=== PATIENT | male | born 1950 | race Caucasian/White ===

== ENCOUNTER 2024-05-24 06:14 | Inpatient (IN) ==
--- NOTE | 2024-05-17 10:49 | PAT Medication Instructions ---
Medication Instructions Date of Service May 17, 2024 Home Medications amlodipine 10 mg tablet 10 mg PO QAM hydrocodone 5 mg-acetaminophen 325 mg tablet 1 tab PO BID losartan 100 mg tablet 100 mg PO QAM gabapentin 100 mg capsule 100 mg PO QAM lidocaine 4 % topical cream 1 applic topical BID tamsulosin 0.4 mg capsule 0.4 mg PO DAILY clindamycin HCl 300 mg capsule 300 mg PO TID glipizide 5 mg tablet, extended release 24 hr 5 mg PO DAILY STOP taking 24 hours before surgery lidocaine 4 % topical cream 1 applic topical BID DO NOT take the morning of surgery losartan 100 mg tablet 100 mg PO QAM glipizide 5 mg tablet, extended release 24 hr 5 mg PO DAILY Take morning of surgery With a small sip of water, OTHERWISE NOTHING TO EAT OR DRINK AFTER MIDNIGHT: amlodipine 10 mg tablet 10 mg PO QAM hydrocodone 5 mg-acetaminophen 325 mg tablet 1 tab PO BID gabapentin 100 mg capsule 100 mg PO QAM tamsulosin 0.4 mg capsule 0.4 mg PO DAILY clindamycin HCl 300 mg capsule 300 mg PO TID Take evening before surgery hydrocodone 5 mg-acetaminophen 325 mg tablet 1 tab PO BID clindamycin HCl 300 mg capsule 300 mg PO TID Other Notes If you have any questions please call us at [phone] or [phone] or or [phone]
--- NOTE | 2024-05-21 08:23 | Anesthesiology Consultation ---
Date of Service May 21, 2024 Assessment & Plan (1) Encounter for pre-operative examination: - check BSG am DOS. To anesthesiologist discretion if BMP needs repeated DOS given mild hyperkalemia. - ER 05/13/24 [facility]: "...Unclear etiology for patient's leukocytosis at this time...1000 mg of Tylenol, but he declined...blood pressure remained elevated while in the emergency department...denies any chest pain or shortness of breath. His main complaint is abdominal pain. CT imaging grossly unremarkable. Unclear etiology for his lower abdominal pain. May be secondary to some urinary retention, but on bladder scan, the patient does not have any significant u rinary retention after voiding...No new prescriptions...Recommended close follow-up with his primary care provider..." Patient reports improvement since ER visit, states he was started on clindamycin earlier this week for UTI-he is unsure who prescribed this. Pharmacy note 05/18/24 states that patient denied urinary symptoms so they did not plan to prescribe antibiotic after follow-up on urine culture. Chapin with surgeon's office made aware of above and poor history on patient stating he was prescribed clindamycin which was initially entered into chart 04/09/24 to chart review. - PAT testing is to be faxed to PCP Dr. Rico for continuity of care. Chart Review Chart Review: Acceptable Risk for Surgery and Patient seen in Pre Admission Testing Teaching & Discussion Pre-Anesthesia Teaching/Discussion Notes: Instructed NPO after midnight before surgery, except medications with 15 cc of water. Medication instructions provided according to the PAT guidelines. History Surgery Operation Date: 05/24/24 08:00 Proposed Procedures p Left Transcarotid Artery Revascularization - Chencho Blanco MD Height/Weight Height: 5 ft 6 in Weight: 87.5 kg Allergies Allergy/AdvReac Type Severity Reaction Status Date / Time No Known Allergies Allergy Verified 05/17/24 09:09 Medications Home Medications Medication Instructions Recorded Confirmed Last Taken amlodipine 10 mg tablet 10 mg PO QAM 12/12/21 05/17/24 12/31/21 04:00 hydrocodone 5 mg-acetaminophen 325 1 tab PO BID 12/12/21 05/17/24 12/31/21 04:00 mg tablet losartan 100 mg tablet 100 mg PO QAM 12/12/21 05/17/24 12/31/21 04:00 gabapentin 100 mg capsule 100 mg PO QAM 02/02/24 05/17/24 Unknown lidocaine 4 % topical cream 1 applic topical BID 02/02/24 05/17/24 Unknown tamsulosin 0.4 mg capsule 0.4 mg PO DAILY 02/02/24 05/17/24 Unknown clindamycin HCl 300 mg capsule 300 mg PO TID 04/09/24 05/17/24 Unknown glipizide 5 mg tablet, extended 5 mg PO DAILY 04/09/24 05/17/24 Unknown release 24 hr Past Medical History Medical History CAD (coronary artery disease) entered into EMR 02/02/24 by pain management provider without additional details; pt does not follow w/ cardio CKD (chronic kidney disease) COPD (chronic obstructive pulmonary disease) pt unaware Diabetes mellitus denies, noncompliant w/ glipizide HTN (hypertension) controlled, stable per pt Hx-TIA (transient ischemic attack) 04/2024- denies residual; states reason for upcoming procedure Leukocytosis Lumbar spondylosis Lumbar stenosis with neurogenic claudication severe at L4-5 Poor historian Urinary retention UTI (urinary tract infection) to start clindamycin Patient denies h/o seizures, heart failure, blood clots/DVTs or blood transfusions. Exercise / Class Metabolic Activity II 4-5 Yardwork/Stairs/Walk up hill (denies chest discomfort or shortness of breath with one flight of stairs) Past Surgical History Surgical History History of cardiac catheterization possible [place]--01/31/2014-denies stents History of carpal tunnel release Right 05/18/2015 History of right cataract surgery History of shoulder surgery right and left Hx of left cataract extraction Hx of tooth extraction Past Anesthesia History No Hx of Anesthesia Complications and No Family Hx of Anesthesia Complications History of PONV No Hx of PONV and No Hx of Motion Sickness Social History Smoking Status: Current every day smoker tobacco type: cigarettes Smoking cigarettes per day: 1.5PPD-advised Do You Dip or Chew Tobacco: No Hx Alcohol Use: Yes Alcohol type: beer alcohol intake frequency: a few times a week Hx Substance Use: No substance use type: does not use Review of Systems Patient denies chest pain, shortness of breath, dyspnea on exertion, snoring, witnessed apneas, reflux, fever, chills, cough, wheezing, or palpitations. Physical Exam Vital Signs Vitals BP 152/80 P 65 TEMP 97.8 SP02 94% on RA RESP 18 Physical Patient resting comfortably in chair in no acute distress, alert and oriented, responding appropriately throughout visit Full cervical extension range of motion without pain TMD 3.5 finger breadths Mallampati Score 3 Dentition: full upper denture Lungs: normal respiratory effort. Good air movement, clear throughout to auscultation, no adventitious breath sounds Cardiac: regular rate and rhythm, no murmurs noted Lab Results Anesthesia Preop Results Results Anesthesia Widget: WBC 7.10 K/ul (4.8-10.8) 05/21/24 Hgb 12.6 g/dl (14.0-18.0) L 05/21/24 Hct 38.0 % (42.0-52.0) L 05/21/24 Plt 212 K/uL (130-400) 05/21/24 Na 134 mmol/L (136-145) L 05/21/24 K 5.2 mmol/L (3.5-5.1) H 05/21/24 Cl 101 mmol/L (98-107) 05/21/24 CO2 28 mmol/L (21-32) 05/21/24 BUN 25 mg/dl (6-23) H 05/21/24 Creat 1.40 mg/dl (0.6-1.4) 05/21/24 Glucose Level 201 mg/dl (70-99(Fasting)) H 05/21/24 PT 11.1 Seconds (9.0-12.0) 05/21/24 PTT 26 Seconds (21-31) 05/21/24 INR 1.0 (0.9-1.1) 05/21/24 HA1c 8.6 % (4.5-5.6) H 05/21/24 Urine Color Yellow 05/13/24 Urine Appearance Clear (Clear) 05/13/24 Urine pH 6.0 (4.5-7.5) 05/13/24 Urine Specific [place] 1.043 (1.000-1.030) H 05/13/24 Urine Protein 3+ (Negative) H 05/13/24 Urine Glucose (UA) Negative (Negative) 05/13/24 Urine Ketones Negative (Negative) 05/13/24 Urine Blood Trace (Negative) H 05/13/24 Urine Nitrite Negative (Negative) 05/13/24 Urine Bilirubin Negative (Negative) 05/13/24 Urine Urobilinogen Negative (Negative) 05/13/24 Urine Leukocyte Esterase Negative (Negative) 05/13/24 Urine WBC (Auto) 11-20 /hpf (0-5) H 05/13/24 Urine RBC (Auto) 0-2 /hpf (0-2) 05/13/24 Urine Hyaline Casts (Auto) 0-2 /lpf (0-2) 05/13/24 Urine Epithelial Cells (Auto) 0-2 /hpf (0-2) 05/13/24 Urine Bacteria (Auto) None Seen (None Seen) 05/13/24 Blood Type AB Positive 05/21/24 Antibody Screen NEGATIVE 05/21/24 Testing Laboratory Results Surgeon's office made aware of elevated A1c, acceptable to proceed from anesthesia standpoint given indication for surgery. Electrocardiogram Date: 05/21/24 NSR, rate 68 bpm Right superior axis deviation Poor R wave progression, consider anterior NJ vs lead placement vs LVH Chest X-Ray Date: 05/21/24 No acute cardiopulmonary findings. Echocardiogram Date: 05/10/24 EF 65% Normal LV regional wall motion abnormalities Asymmetric septal hypertrophy 1.4 cm Grade I diastolic dysfunction No significant valvular abnormalities Other Testing Abdomen pelvis CT 05/13/24 1. No acute process within the abdomen or pelvis. 2. Extensive colonic diverticulosis. No evidence for acute diverticulitis. 3. Normal appendix. No bowel obstruction. 4. Left nephrolithiasis. No ureteral calculi. No hydronephrosis. Urine culture 05/13/24: E. coli Neck CTA 05/05/24 1. Advanced atherosclerotic plaque with no CT evidence of hemodynamically significant carotid artery stenosis. 2. There is less than 50% stenosis at the origin of the left internal carotid artery. 3. Apparent high-grade focal stenosis of the left vertebral artery at the level of C5 is likely secondary to spondylotic change. 4. Emphysema. 5. Paranasal sinus disease as above. Carotid doppler 04/15/24 1. Focal area of high-grade stenosis versus occlusion of the proximal cervical segment left ICA. Correlation with CTA of the neck recommended. 2. Normal antegrade vertebral flow bilaterally.
--- OUTSIDE RECORDS SUMMARY | 2024-05-24 06:22 | External Medical Summary | Continuity of Care Document ---
Author Name Unknown Organization [facility] [address] [place], [place] [id number] Care Team Providers Care Trout Farmer Name Role Phone Jh Rico Primary Care Physician [phone] Encounter [id number] Date(s): 05/21/24 - 05/21/24 [facility] [address] [facility] [address] [place], [place] [phone] Encounter Diagnosis Occlusion and stenosis of bilateral carotid arteries(Final) - Discharge Disposition: Home or Self Care Attending Physician: SAMMIE Arthur Lynn Referring Physician: SAMMIE Arthur Lynn Allergies, Adverse Reactions, Alerts No Known Allergies Medications acetaminophen-hydrocodone 325 mg-5 mg oral tablet TAKE 1 TABLET BY MOUTH 2 times a day as needed Start Date: 05/06/24 Status: Ordered amLODIPine 10 mg oral tablet TAKE 1 TABLET (10mg) BY MOUTH IN THE MORNING Start Date: 05/06/24 Status: Ordered aspirin 81 mg oral delayed release tablet Start: 05/10/24 3:07:00 PM EDT, 1 tab, PO, Daily, Disp# 90 tab, Refills: 3, [facility] [place] Start Date: 05/10/24 Status: Ordered atorvastatin 40 mg oral tablet Start: 05/10/24 3:08:00 PM EDT, 1 tab, PO, Daily, Disp# 90 tab, Refills: 3, [facility] [place] Start Date: 05/10/24 Status: Ordered losartan 100 mg oral tablet TAKE 1 TABLET (100mg) BY MOUTH IN THE MORNING Start Date: 05/06/24 Status: Ordered nitroglycerin 0.4 mg sublingual tablet Start: 05/06/24 8:56:00 AM EDT, 1 tab, SL, q5min, Disp# 25 tab, PRN: as needed for chest pain Start Date: 05/06/24 Status: Ordered Plavix 75 mg oral tablet Start: 05/10/24 3:07:00 PM EDT, 1 tab, PO, Daily, Disp# 90 tab, Refills: 3, Pharmacy: [facility] Start Date: 05/10/24 Status: Ordered Problem List No Known Problems Results Laboratory List Name Date Platelet Function (P2Y12 Receptor) (PLT FUNCTION P2Y12) 05/21/24 Most recent to oldest [Reference Range]: 1 P2Y12 Platelet Function [194-418 PRU] 21 7 PRU 1 (05/21/24 12:13 PM) 1Result Comment: PRU reference range is 194-418 (healthy adults, no drug treatment). Post Drug Results: Lower PRU levels are expected following treatment with antiplatelet drugs. Post-treatment values are usually below the stated reference range above. The post-drug PRU values reported in the [employer] P2Y12 package insert are 18-435. This broader range reflects the variability in drug response and is consistent with significant numbers of patients with decreased sensitivity to P2Y12 receptor antagonists (prasugrel or clopidogrel). Clinical studies suggest an on-treatment PRU>230 indicates less than optimal response to therapy, and PRU<208 at 12-24 hours after percutaneous intervention or during follow-up is associated with a lower risk of cardiovascular events (1). (1).Standard-vs high-dose clopidogrel based on platelet function testing after percutaneouscoronary intervention: the GRAVITAS randomized trial. Dayne, et al. DAVIE. 2010October 24; 305(11): 2804-9897. doi: 10.1001/davie.2011.290 Patient Care team information Care Team Personnel Name: DO Rico Sean D Position: Referring Member Role: Primary Care Provider Address: [address] [place] [id number] [place] Name: SAMMIE Arthur Lynn Position: Physician Branch General Manager Exempt - Vasc Surg Member Role: Lifetime Relationship Address: [address] [place] [id number] [place]
[2024-05-24] MEDS: SODIUM CHLORIDE 0.9% 1,000 ML IV SCH (06:47)
[2024-05-24] MEDS ORDERED: ePHEDrine sulfate 50 MG/ML AMP IV PRN (06:54)
[2024-05-24] MEDS ORDERED: ATROPINE SULFATE 0.1 MG/ML 10ML SYR IV PRN (06:54)
[2024-05-24] MEDS ORDERED: FLUMAZENIL 0.1 MG/1 ML 10 ML VIAL IV PRN (06:54)
[2024-05-24] MEDS ORDERED: LABETALOL HCL IV 5 MG/ML 20ML IV PRN (06:54)
[2024-05-24] MEDS ORDERED: NALOXONE HCL 0.4 MG/1 ML VIAL/CARP IV PRN (06:54)
[2024-05-24 07:00] LABS: BUN Creatinine Ratio 19.9 (10-20); Calcium 9.1 mg/dl (8.6-10.3); Creatinine Clr Calc Pharmacy 46.7 ml/min; Potassium 4.9 mmol/L (3.5-5.1)
[2024-05-24] MEDS ORDERED: PROPOFOL IV EMULSION 10 MG/ML 20 ML VIAL IV ONE (07:05)
[2024-05-24] MEDS ORDERED: CISATRACURIUM BESYLATE IV SOLN 2 MG/ML 10 ML VIAL IV ONE (07:07)
[2024-05-24] MEDS ORDERED: SUCCINYLCHOLINE 100MG/5ML SYR IV ONE (07:08)
[2024-05-24] MEDS ORDERED: fentaNYL citrate PF 100 MCG/2 ML VIAL ONE ×2 (07:08→10:17)
[2024-05-24] MEDS ORDERED: MIDAZOLAM HCL 1 MG/ML 2ML VIAL ONE (07:09)
--- NOTE | 2024-05-24 07:48 | History & Physical Report ---
Date of Service May 24, 2024 History of Present Illness Primary Care Provider: Jh Rico DO Name: SANFORD ALVAREZ Patient Number: [id number] : 1950 Date of Service: 05/10/2024 Chief Complaint: _New patient consultation for carotid stenosis HPI: _Mr. Alvarez is an elderly male who presents to Dr. Blanco's vascular surgery clinic today as a new patient in consultation for carotid stenosis. Patient states that he developed a breen area of vision in his left eye about 6 weeks ago. He states that it has abated back to almost normal at this point. He called his primary care physician who advised him to see his eye doctor, who then sent him to a retinal specialist. Both of them determined that he had a central retinal artery occlusion by eye exam. He was recommended to undergo a carotid ultrasound which demonstrated a severe stenosis of his left ICA. He is then sent for CTA by his primary care physician, and referred to Dr. Blanco's office for evaluation. Patient denies any other symptoms of cerebrovascular i nsufficiency including facial droop, sudden onset confusion, unilateral headache, unilateral extremity weakness numbness or tingling, difficulty speaking or swallowing. He has no history of TIA or CVA in the past. He denies headache, fever, chest pain, shortness of breath, bone pain, nausea, vomiting, rest pain, claudication, nonhealing wounds or ulcers, other complaints. Review of systems: A total of 14 systems were reviewed and are negative aside from what is related in his HPI Imaging: Patient had a CTA performed at [facility] which demonstrates an ulcerative plaque of his proximal left ICA. An ultrasound performed also at [facility] indicates severe stenosis of his left ICA Current Home Meds: (Last Updated 05/10 15:25) acetaminophen-hydrocodone (acetaminophen-hydrocodone 325 mg-5 mg oral tablet) TAKE 1 TABLET BY MOUTH 2 times a day as needed amLODIPine (amLODIPine 10 mg oral tablet) TAKE 1 TABLET (10mg) BY MOUTH IN THE MORNING aspirin (aspirin 81 mg oral delayed release tablet) 81 mg PO Daily atorvastatin (atorvastatin 40 mg oral tablet) 40 mg PO Daily clopidogrel (Plavix 75 mg oral tablet) 75 mg PO Daily losartan (losartan 100 mg oral tablet) TAKE 1 TABLET (100mg) BY MOUTH IN THE MORNING nitroglycerin (nitroglycerin 0.4 mg sublingual tablet) 0.4 mg SL q5min PRN: as needed for chest pain Allergies and Sensitivities: NKA Past Medical History: Problems: Hypertension Carotid artery stenosis Coronary artery stenosis Surgical history: Positive for carpal tunnel surgery in the right, bilateral shoulder surgery, cataracts, cardiac catheterization without intervention Family history: Positive for hypertension and cancer social history: Patient is a current smoker, he smokes at least 1 pack daily for the past 60 years. He he occasionally consumes beer as a form of alcohol. He does not use illicit drugs. OBJECTIVE Vitals: Last Updated 05/10/24 14:27 Date Temp BP Location Pulse RR SpO2 Pain 05/10/24 144/58 Right Arm 05/10/24 128/60 Left Arm 79 93 Vital Signs are the last 3 documented. No Orthostatic Data Available No Height/Weight Data Available Physical Exam Constitutional: In general patient is a overweight but healthy-appearing well- nourished well-developed elderly male in no distress. Is alert and oriented with any focal deficits. His carotids do not demonstrate a bruit. His heart is regular without murmur, lungs are decreased with coarse sounds and occasional wheezing. Otherwise are clear. His abdomen is protuberant due to body habitus. Is soft and nontender with normoactive bowel sounds in all 4 quadrants. Brachial and radial pulses are +3. Femoral pulses are +3. Lower extremities a pulses are +2 in the left +1 in the right. He has brisk capillary refill and no sign of distal ischemia. There is no edema. 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 This also demonstrates an ulcerative plaque, which is likely the source of his central retinal artery occlusion and his eye symptoms. While his symptoms appear to have nearly resolved, he remains at increased risk of another cerebrovascular event. For this reason we recommend that he consider surgical intervention. The surgical options of carotid endarterectomy versus TCAR were discussed at length with the patient. Patient elects to proceed with TCAR. We will start him on Plavix, aspirin, and statin medications today. He is aware that he will require these medications for at least 1 year postoperatively. The risks of the surgery including but not limited to bleeding, infection, CVA, nerve damage, myocardial infarction, , were discussed at length with the patient by myself at Dr. Blanco's request. The patient expresses understanding and agreement to proceed. This will occur in the next few weeks at the patient's convenience. We will have him undergo a echocardiogram preoperatively. Patient is advised to call any questions or concerns. He is agreeable with this plan. Thank you for letting us participate in the care of this patient. I have personally spent_45__ minutes performing [id number] and [id number]-wlna-[id number] activities on this date of service.Time does not include separately reported services. Activities Include: _x_ review of the medical record x__ obtaining a history _x_ physical exam/evaluation __ review labs _x_ review radiology reports x__ counseling/educating patient/family/caregiver __ discussion/referral to other healthcare professional _x_ documenting care in the medical record __ independent interpretation of results x__ communication of results to patient/family/caregiver x__ coordination of care Signature Line Electronic Signature on File CC: Jh Rico, [address] [facility] [id number] * Electronically Reviewed/Signed by: Prudence Arthur PA-C Author Signature Dt/Tm:05/10/2024 04:31 PM [facility] [place], [address] [place] [address] Result Type: HVI Outpt Note Date of Service: May 10, 2024 16:20 EDT Authorization Status: Final Author or Import Date: SAMMIE Arthur Lynn on May 10, 2024 16:31 EDT Verified By: SAMMIE Arthur Lynn on May 10, 2024 16:31 EDT Encounter info: [id number], [facility], Clinic, 05/10/2024 - 05/10/2024 Allergies Allergy/AdvReac Type Severity Reaction Status Date / Time No Known Allergies Allergy Verified 05/24/24 06:35 Home Medications Medication Instructions Recorded Confirmed Type amlodipine 10 mg tablet 10 mg PO QAM 12/12/21 05/24/24 History hydrocodone 5 mg-acetaminophen 325 1 tab PO BID 12/12/21 05/24/24 History mg tablet losartan 100 mg tablet 100 mg PO QAM 12/12/21 05/24/24 History gabapentin 100 mg capsule 100 mg PO QAM 02/02/24 05/24/24 History lidocaine 4 % topical cream 1 applic topical BID 02/02/24 05/17/24 History tamsulosin 0.4 mg capsule 0.4 mg PO DAILY 02/02/24 05/24/24 History clindamycin HCl 300 mg capsule 300 mg PO TID 04/09/24 05/24/24 History glipizide 5 mg tablet, extended 5 mg PO DAILY 04/09/24 05/24/24 History release 24 hr aspirin 81 mg PO 1XD 05/24/24 05/24/24 History atorvastatin 40 mg tablet 40 mg 05/24/24 History clopidogrel 75 mg PO 1XD 05/24/24 05/24/24 History Past Med/Surg History Problem List Encounter for pre-operative examination Hypertension (Acute) Leukocytosis (Acute) Right sided abdominal pain (Acute) Lumbar stenosis with neurogenic claudication severe at L4-5 COPD (chronic obstructive pulmonary disease) Chronic kidney disease Erectile dysfunction Diabetes mellitus Lumbar spondylosis Coronary artery disease Tobacco use disorder Brow ptosis, bilateral Dermatochalasis of both upper eyelids Medical History CAD (coronary artery disease) entered into EMR 02/02/24 by pain management provider without additional details; pt does not follow w/ cardio CKD (chronic kidney disease) COPD (chronic obstructive pulmonary disease) pt unaware Diabetes mellitus denies, noncompliant w/ glipizide HTN (hypertension) controlled, stable per pt Hx-TIA (transient ischemic attack) 04/2024- denies residual; states reason for upcoming procedure Leukocytosis Lumbar spondylosis Lumbar stenosis with neurogenic claudication severe at L4-5 Poor historian Urinary retention UTI (urinary tract infection) to start clindamycin Surgical History History of cardiac catheterization possible [place]--01/31/2014-denies stents History of carpal tunnel release Right 05/18/2015 History of right cataract surgery History of shoulder surgery right and left Hx of left cataract extraction Hx of tooth extraction Social History Smoking Status: Current every day smoker Tobacco Type: Cigarettes Cigarettes Per Day: 1.5PPD-advised; Second Hand Exposure: No; Do You Dip or Chew Tobacco: No; Tobacco Cessation Education Requested by Patient: No Hx Alcohol Use: Yes Alcohol type: beer Hx Substance Use: No Preferred Language: Belarusian Communication Ability: Effective Laser Technician Required: No Beliefs That Will Affect Care: None Current Living Situation: Alone Other Information That Helps Us Care for You: No Feels Safe at Home: Yes Safety Concerns: Feels Safe At This Time Assistive Devices: Denture - Upper and Glasses Results & Data Vital Signs (Past 12 Hours) Vital Signs Temp Pulse Resp BP Pulse Ox O2 Del Method 05/24/24 06:48 36.6 C 70 20 196/78 H 95 Room Air
--- NOTE | 2024-05-24 07:49 | History & Physical Bridge Note ---
Date of Service May 24, 2024 History & Physical Bridge Note I have examined the patient, reviewed the History & Physical and in the interval since the performance of the History & Physical I have noted the following changes of clinical significance: no changes noted
[2024-05-24] MEDS: TICAGRELOR 90 MG TAB PO STA (07:54)
[2024-05-24] MEDS ORDERED: HEPARIN SOD (PORCINE) 1000 UNIT/ML ONE (08:02)
[2024-05-24 09:49] LABS: Appearance Urine Clear (Clear); Bilirubin Urine Negative (Negative); Blood Urine Negative (Negative); Color Urine Yellow; Glucose Urine UA Negative (Negative); Ketones Urine Negative (Negative); Leukocyte Esterase Urine Negative (Negative); Nitrite Urine Negative (Negative); Protein Urine 2+ (Negative); Urobilinogen Urine Negative (Negative); pH Urine 6.5 (4.5-7.5)
[2024-05-24] MEDS: NovoLIN-R INSULIN PER UNIT CHARGE ONE (09:55)
[2024-05-24] MEDS: INSULIN HUMAN REGULAR PER UNIT 5 UNITS in SYRINGE 0 ML IV STA (10:02)
[2024-05-24 10:13] LABS: Bacteria Urine None Seen (None Seen); Epithelial Cell Urine 0-2 /hpf (0-2); RBC Urine 0-2 /hpf (0-2); WBC Urine 0-5 /hpf (0-5)
[2024-05-24] MEDS: ceFAZolin 2000MG 2,000 MG/15 ML SYR IV SCH ×2 (10:18→18:14)
[2024-05-24] MEDS ORDERED: GLYCOPYRROLATE 0.2 MG/ML VIAL ONE ×2 (10:21→10:47)
[2024-05-24] MEDS ORDERED: NEOSTIGMINE METHYLSULFATE 1 MG/ML 10ML VIAL ONE (10:47)
[2024-05-24] MEDS ORDERED: PHENYLEPHRINE 100MCG/ML 10ML SYR IV ONE (10:47)
[2024-05-24] MEDS ORDERED: ePHEDrine sulfate 50 MG/5 ML SYR ONE (10:48)
[2024-05-24] MEDS: VISIPAQUE IV ONE (10:52)
[2024-05-24] MEDS ORDERED: PROTAMINE SULFATE 10 MG/ML 5 ML VIAL IV ONE (10:53)
[2024-05-24] MEDS: GELATIN SPONGE SZ 100 ONE (11:04)
[2024-05-24] MEDS: ceFAZolin 330 MG/ML 1 GM VIAL ONE (11:04)
[2024-05-24] MEDS: THROMBIN FOR SOLN 20000 UNIT KIT ONE (11:04)
--- NOTE | 2024-05-24 11:10 | Procedure Note ---
Angiogram Post Procedure Fluoroscopy Time (minutes): 1.8 Radiation (mGy): 28 Contrast: 12 Post Operative Report Pre & Post Diagnosis Operation Date: 05/24/24 08:00 Pre-Op Diagnosis: Symptomatic Left Internal Carotid Artery Stenosis Post-Op Diagnosis: Symptomatic Left Internal Carotid Artery Stenosis I identified the patient and participated in the time-out.: Yes Procedure Operation Date: 05/24/24 08:00 Actual Procedures p Left Transcarotid Artery Revascularization(Left), Ultrasound localization of right common femoral vein - Chencho Blanco MD Surgeon Chencho Blanco MD [employer] Dominic,PAC Estimated Blood Loss 10 Findings Consistent with Post-Op Diagnosis Specimens none Anesthesia Type General Complications none Disposition Accompanied Patient To Recovery: No Disposition: Recovery Room Indications This is a 73-year-old gentleman who was found to have a symptomatic left internal carotid artery stenosis. Endarterectomy versus TCAR was recommended. He elected to go ahead with a TCAR. I have discussed the risks options and benefits of the procedure with the patient. The patient understands the risks options and benefits and agrees to the procedure. Description of Procedure The patient was taken to the operating room and placed in supine position. After general anesthesia was accomplished the groins and left side of the neck and chest were prepped and draped in a sterile manner. Timeout was performed and the patient was identified. A transverse incision was made just above the clavicle between the heads of the sternocleidomastoid. This is carried down to where the common carotid artery was identified. It was isolated. It was slung with umbilical tape. Next the U stitch was placed in the common carotid artery with a 5-0 Prolene suture. Patient was given 8000 heparin at that time. Ultrasound was then used to localize the right common femoral vein. The vein was patent and compressed easily. Under ultrasound guidance the right common femoral vein was punctured and the venous sheath was inserted. This was aspirated and flushed with heparinized saline. ACT at that time was 311. Using micropuncture technique the common carotid artery was punctured using a tunneling technique.. The micro sheath was inserted to 3 cm. Injection was then done showing the bifurcation. There was a significant lesion seen at the origin of the internal carotid artery on the left side. We then inserted the J- wire left and short of the lesion. The micro sheath was removed and the TCAR sheath was inserted without the footplate. Once it was in place it was sutured to the chest wall and the skin puncture site edge. We then flushed the tubing appropriately. The venous return to was clamped onto the TCAR sheath. It was flushed through and then attached to the venous inflow sheath in the right groin. Sheath was checked for flow. The saline cleared nicely. The common carotid artery was then clamped. Flow reversal was instituted.The flow reversal was again checked for flow and found to have good flow after clamping. We inserted a 5 x 25 balloon backloaded on the wire. The wire was passed through the lesion into the petrous portion of the internal carotid. The 5 balloon was then advanced to the lesion. Lesion was then predilated with a 5 mm balloon. Balloon was removed. We then inserted the 8/6 x 40 stent. This was deployed across the lesion without difficulty. The catheter was removed. the carotid was allowed to go 2 minutes with flow reversal. Completion angiogram was done at that time which showed a widely patent carotid stent. At that point the common carotid artery was unclamped. The venous return tubing was clamped and removed from the TCAR sheath. The blood was allowed to flow back into the venous system. Once this was completed the sheath was pulled from the groin and pressure was applied. The TCAR sheath was then removed and the 5-0 Prolene suture securely tied. The patient was given 25 mg of protamine. Hemostasis was noted of the puncture site. An ACT was then drawn. ACT was 140. Once this was completed the sheath was pulled from the groin and pressure was applied. Wound was irrigated with saline solution. Adequate hemostasis was obtained of the w ound. Once this was noted the wound was closed in usual fashion using a 3-0 Vicryl suture for the subcutaneous layer and a 4-0 subcuticular Vicryl suture for the skin edges. Dermabond was used for dressing. The patient left the operation room in satisfactory condition and tolerated the procedure well. All needle and sponge counts were correct at the end of the procedure. Prudence Arthur Pac assisted due to lack of resident availability and was necessary for positioning, draping, retraction, wound closure deep layers, subcutaneous tissue, and skin closure and was necessary for assisting with the case. I attest to the content of the Intraoperative Record and any orders documented therein. Any exceptions are noted below.
[2024-05-24] MEDS: BUPIVACAINE/EPINEPHRINE 0.5% MPF 1:200,000 30 ML VIAL ONE (11:13)
[2024-05-24] MEDS: ONDANSETRON INJ 2 MG/ML 2 ML VIAL IV PRN (11:47)
[2024-05-24] MEDS: fentaNYL citrate PF 100 MCG/2 ML VIAL IV PRN (11:52)
[2024-05-24] MEDS: PROMETHAZINE HCL 6.25 MG in SODIUM CHLORIDE 0.9% 50 ML IV PRN (12:32)
--- NOTE | 2024-05-24 12:39 | Anesthesiology Progress Note ---
Date of Service May 24, 2024 Anesthesia Post Procedure Vital Signs Vital Signs: Temp Pulse Pulse Resp BP BP Pulse Ox 05/24/24 12:20 71 16 155/48 H 165/63 H 93 05/24/24 12:10 80 16 150/46 H 168/63 H 98 05/24/24 12:00 66 16 167/46 H 169/62 H 90 05/24/24 11:50 78 20 164/50 H 175/80 H 92 05/24/24 11:40 62 16 154/44 H 164/60 H 94 05/24/24 11:32 36.1 C L 68 14 168/62 H 94 05/24/24 06:48 36.6 C 70 20 196/78 H 95 O2 Del Method O2 Flow Rate 05/24/24 12:20 Oxymask 6 05/24/24 12:10 Oxymask 8 05/24/24 12:00 Nasal Cannula 4 05/24/24 11:50 Nasal Cannula 4 05/24/24 11:40 Nasal Cannula 4 05/24/24 11:32 Oxymask 8 05/24/24 06:48 Room Air Transfer of Care Handoff Completed per policy Notes Mental Status: alert / awake / arousable Patient Amnestic to Procedure: Yes Nausea / Vomiting: adequately controlled Pain: adequately controlled Airway Patency, RR, SpO2: stable & adequate BP & HR: stable & adequate Hydration State: stable & adequate Anesthetic Complications: no major complications apparent
[2024-05-24 12:59] VITALS: TEMP 98.2
[2024-05-24] MEDS ORDERED: STAT IV Infusion **Titration per Protocol STA (13:59)
[2024-05-24] MEDS ORDERED: PHENYLEPHRINE/NSS 25 MG/250 ML BAG IV PRN (13:59)
--- NOTE | 2024-05-24 14:10 | Critical Care Consultation ---
Date of Consultation May 24, 2024 Assessment & Plan (1) Hx-TIA (transient ischemic attack): (2) HTN (hypertension): (3) Diabetes mellitus: (4) COPD (chronic obstructive pulmonary disease): Plan Impression: 73-year-old male with multiple chronic medical conditions who is s tatus post TCAR today for symptomatic carotid stenosis. He is in the ICU and doing well clinically. Recommendations: 1. Carotid stenosis: Status post TCAR. Will continue to observe in the ICU overnight per protocol. Management per vascular surgery and disposition per vascular surgery. Defer Plavix to vascular surgery. 2. Hypertension: Continue outpatient antihypertensive medications. May require some additional as needed medications depending on response perioperatively and postoperatively. Parameters per vascular surgery. 3. Diabetes: Continue outpatient medications. Will cover with sliding scale insulin if needed. 4. BPH: Continue home medications. 5. Weight postoperative labs. The patient's remaining critical care issues have been well addressed by the vascular surgery service. Will continue to follow in the postoperative setting. Feel free to contact us with questions or concerns. History of Present Illness Attending Physician: Chencho Blanco MD History of Present Illness Asked by vascular surgery to assist in evaluation management this patient postoperatively status post TCAR. History is obtained from review the electronic medical record and discussion with the patient. The patient is a 73-year-old male with a history of hypertension diabetes and chronic kidney disease who developed amaurosis a few weeks ago. 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 Carotid ultrasound confirmed presence of significant carotid stenosis with ulcerative plaque on the left and he was taken to the OR today where he underwent TCAR. Procedure was uneventful and he has been extubated and brought back to the intensive care unit without any neurological issues. He is hemodynamically stable. His only complaint is dry mouth currently. Allergies Allergy/AdvReac Type Severity Reaction Status Date / Time No Known Allergies Allergy Verified 05/24/24 06:35 Home Medications Medication Instructions Recorded Confirmed Type amlodipine 10 mg tablet 10 mg PO QAM 12/12/21 05/24/24 History hydrocodone 5 mg-acetaminophen 325 1 tab PO BID 12/12/21 05/24/24 History mg tablet losartan 100 mg tablet 100 mg PO QAM 12/12/21 05/24/24 History gabapentin 100 mg capsule 100 mg PO QAM 02/02/24 05/24/24 History lidocaine 4 % topical cream 1 applic topical BID 02/02/24 05/17/24 History tamsulosin 0.4 mg capsule 0.4 mg PO DAILY 02/02/24 05/24/24 History clindamycin HCl 300 mg capsule 300 mg PO TID 04/09/24 05/24/24 History glipizide 5 mg tablet, extended 5 mg PO DAILY 04/09/24 05/24/24 History release 24 hr aspirin 81 mg PO 1XD 05/24/24 05/24/24 History atorvastatin 40 mg tablet 40 mg 05/24/24 History clopidogrel 75 mg PO 1XD 05/24/24 05/24/24 History Patient History Medical History CAD (coronary artery disease) entered into EMR 02/02/24 by pain management provider without additional details; pt does not follow w/ cardio CKD (chronic kidney disease) COPD (chronic obstructive pulmonary disease) pt unaware Diabetes mellitus denies, noncompliant w/ glipizide HTN (hypertension) controlled, stable per pt Hx-TIA (transient ischemic attack) 04/2024- denies residual; states reason for upcoming procedure Leukocytosis Lumbar spondylosis Lumbar stenosis with neurogenic claudication severe at L4-5 Poor historian Urinary retention UTI (urinary tract infection) to start clindamycin Surgical History History of cardiac catheterization possible OR--01/31/2014-denies stents History of carpal tunnel release Right 05/18/2015 History of right cataract surgery History of shoulder surgery right and left Hx of left cataract extraction Hx of tooth extraction Social History Smoking Status: Current every day smoker Tobacco Type: Cigarettes Cigarettes Per Day: 1.5PPD-advised; Second Hand Exposure: No; Do You Dip or Chew Tobacco: No; Tobacco Cessation Education Requested by Patient: No Hx Alcohol Use: Yes Alcohol type: beer Hx Substance Use: No Preferred Language: Divehi Communication Ability: Effective Front Services Agent Required: No Beliefs That Will Affect Care: None Current Living Situation: Alone Other Information That Helps Us Care for You: No Feels Safe at Home: Yes Safety Concerns: Feels Safe At This Time Assistive Devices: Denture - Upper and Glasses Review of Systems Review of Systems: Please refer to admission H&P. No additions or deletions Physical Exam Constitutional: WD/WN, vitals as above Neck: trachea midline, no thyromegaly Respiratory: normal respiratory effort, lungs clear to auscultation Cardiovascular: RRR, no murmur, no edema Gastrointestinal (Abdomen): normal bowel sounds, soft, nontender, no hepatosplenomegaly Musculoskeletal: Extremities: extremities normal to inspection Skin: no rashes, warm and dry Neurologic: Nonfocal exam Lymphatic: no cervical lymphadenopathy Results & Data Results & Data Vital Signs (Past 12 Hours) Vital Signs Temp Pulse Pulse Resp BP BP Pulse Ox 05/24/24 13:20 83 19 154/51 H 156/72 H 94 05/24/24 13:10 66 12 151/47 H 157/96 H 97 05/24/24 12:55 72 18 156/44 H 163/58 H 96 05/24/24 12:40 36.8 C 73 18 160/47 H 160/68 H 96 05/24/24 12:30 80 16 139/46 L 116/77 92 05/24/24 12:20 71 16 155/48 H 165/63 H 93 05/24/24 12:10 80 16 150/46 H 168/63 H 98 05/24/24 12:00 66 16 167/46 H 169/62 H 90 05/24/24 11:50 78 20 164/50 H 175/80 H 92 05/24/24 11:40 62 16 154/44 H 164/60 H 94 05/24/24 11:32 36.1 C L 68 14 168/62 H 94 05/24/24 06:48 36.6 C 70 20 196/78 H 95 O2 Del Method O2 Flow Rate 05/24/24 13:20 Nasal Cannula 4 05/24/24 13:10 Nasal Cannula 4 05/24/24 12:55 Nasal Cannula 4 05/24/24 12:40 Nasal Cannula 4 05/24/24 12:30 Nasal Cannula 4 05/24/24 12:20 Oxymask 6 05/24/24 12:10 Oxymask 8 05/24/24 12:00 Nasal Cannula 4 05/24/24 11:50 Nasal Cannula 4 05/24/24 11:40 Nasal Cannula 4 05/24/24 11:32 Oxymask 8 05/24/24 06:48 Room Air Critical Care Results & Data Vital Signs (Past 12 Hours) Vital Signs Temp Pulse Pulse Resp BP BP Pulse Ox 05/24/24 13:20 83 19 154/51 H 156/72 H 94 05/24/24 13:10 66 12 151/47 H 157/96 H 97 05/24/24 12:55 72 18 156/44 H 163/58 H 96 05/24/24 12:40 36.8 C 73 18 160/47 H 160/68 H 96 05/24/24 12:30 80 16 139/46 L 116/77 92 05/24/24 12:20 71 16 155/48 H 165/63 H 93 05/24/24 12:10 80 16 150/46 H 168/63 H 98 05/24/24 12:00 66 16 167/46 H 169/62 H 90 05/24/24 11:50 78 20 164/50 H 175/80 H 92 05/24/24 11:40 62 16 154/44 H 164/60 H 94 05/24/24 11:32 36.1 C L 68 14 168/62 H 94 05/24/24 06:48 36.6 C 70 20 196/78 H 95 O2 Del Method O2 Flow Rate 05/24/24 13:20 Nasal Cannula 4 05/24/24 13:10 Nasal Cannula 4 05/24/24 12:55 Nasal Cannula 4 05/24/24 12:40 Nasal Cannula 4 05/24/24 12:30 Nasal Cannula 4 05/24/24 12:20 Oxymask 6 05/24/24 12:10 Oxymask 8 05/24/24 12:00 Nasal Cannula 4 05/24/24 11:50 Nasal Cannula 4 05/24/24 11:40 Nasal Cannula 4 05/24/24 11:32 Oxymask 8 05/24/24 06:48 Room Air Lab & Micro Results (Past 24 Hours) No Data to Display Na 136 mmol/L (136-145) 05/24/24 K 4.9 mmol/L (3.5-5.1) 05/24/24 Cl 101 mmol/L (98-107) 05/24/24 CO2 28 mmol/L (21-32) 05/24/24 Anion Gap 7 (3-11) 05/24/24 BUN 28 mg/dl (6-23) H 05/24/24 Creatinine 1.41 mg/dl (0.6-1.4) H 05/24/24 BUN/Creatinine Ratio 19.9 (10-20) 05/24/24 Glu 201 mg/dl (70-99(Fasting)) H 05/24/24 Ca 9.1 mg/dl (8.6-10.3) 05/24/24 Calcium Level 9.1 mg/dl (8.6-10.3) 05/24/24 06:30 I & O Totals 24 Hours 05/23/24 05/24/24 05/25/24 06:59 06:59 06:59 Intake Total 1000 / 1000 Balance 1000 / 1000 Cumulative 05/17/24 08:25 thru 05/24/24 09:55 Intake Total 1000 Balance 1000 RT Ventilator Mngmt (Last Documented) Ventilator Ordered Settings Respiratory Rate 19 05/24/24 13:20 Ventilator - PT Measurements Respiratory Rate 19 Coding Level of Care Code 59481 IN/OBS CONSULT LVL 3,45M Diagnoses Hx-TIA (transient ischemic attack) Z86.73 HTN (hypertension) I10 Diabetes mellitus E11.9 COPD (chronic obstructive pulmonary disease) J44.9
[2024-05-24] MEDS: LACTATED RINGER'S 1,000 ML IV SCH (14:23)
[2024-05-24] MEDS: PROMETHAZINE HCL INJ 25 MG/ML 1 ML VIAL ONE (14:24)
[2024-05-24] MEDS: SODIUM CHLORIDE 0.9% 50 ML BAG ONE (14:24)
[2024-05-24] MEDS: NITROGLYCERIN/D5W 100MCG/ML 250 ML IV PRN (14:53)
[2024-05-24] MEDS: HYDROCODONE/ACETAMOPHEN 5/325MG TAB PO SCH (20:01)
[2024-05-24] MEDS: HYDROCODONE/ACETAMOPHEN 5/325MG TAB PO PRN (20:01)
[2024-05-25] MEDS: ASPIRIN 81 MG ECTAB PO SCH (07:15)
[2024-05-25] MEDS: glipiZIDE ER 2.5 MG TABCR PO SCH (07:15)
[2024-05-25] MEDS: amLODIPine BESYLATE 5 MG TAB PO SCH (07:15)
[2024-05-25] MEDS: ATORVASTATIN 40 MG TAB PO SCH (07:15)
[2024-05-25] MEDS: GABAPENTIN 100 MG CAP PO SCH (07:16)
[2024-05-25] MEDS: LOSARTAN POTASSIUM 50 MG TAB PO SCH (07:16)
[2024-05-25] MEDS: TAMSULOSIN HCL 0.4 MG CAP PO SCH (07:17)
--- NOTE | 2024-05-25 08:03 | Critical Care Progress Note ---
Date of Service May 25, 2024 Assessment & Plan (1) Hx-TIA (transient ischemic attack): (2) HTN (hypertension): (3) Diabetes mellitus: (4) COPD (chronic obstructive pulmonary disease): Plan Impression: 73-year-old male with multiple chronic medical conditions who is status post TCAR today for symptomatic carotid stenosis. He is in the ICU and doing well clinically. Recommendations: 1. Carotid stenosis: Status post TCAR. Will continue to observe in the ICU overnight per protocol. Management per vascular surgery and disposition per vascular surgery. Defer Plavix to vascular surgery. 2. Hypertension: Continue outpatient antihypertensive medications. Defer nit roglycerin to vascular surgery 3. Diabetes: Continue outpatient medications. Will cover with sliding scale insulin if needed. 4. BPH: Continue home medications. 5. Disposition per vascular surgery Critical care issues resolved. Critical care will sign off. Feel free to contact us with questions or concerns Admission and Anticipated Discharge Date Admission Date: May 24, 2024 Subjective Patient seen and examined. EMR reviewed. Discussed with bedside critical care nurse and patient as well as on multidisciplinary rounds. Patient is awake alert conversant. He is done well overnight. He was initiated on nitroglycerin for blood pressure control. He got his oral medications this morning and blood pressure appears to be responding. He has no new neurological complaints currently. Review of Systems Review of Systems: All systems reviewed & are unremarkable except as noted in Subjective Physical Exam Constitutional: WD/WN, vitals as above Neck: trachea midline, no thyromegaly Respiratory: normal respiratory effort, lungs clear to auscultation Cardiovascular: RRR, no murmur, no edema Gastrointestinal (Abdomen): normal bowel sounds, soft, nontender, no hepatosplenomegaly Musculoskeletal: Extremities: extremities normal to inspection Skin: no rashes, warm and dry Lymphatic: no cervical lymphadenopathy Results & Data Results & Data Vital Signs (Past 12 Hours) Vital Signs Temp Pulse Resp BP Pulse Ox O2 Del Method O2 Flow Rate 05/25/24 04:42 86 18 96 05/25/24 04:33 64 15 97 05/25/24 04:12 66 15 96 05/25/24 04:00 36.8 C 05/25/24 04:00 66 14 96 05/25/24 03:51 67 17 96 05/25/24 03:30 74 16 95 05/25/24 03:21 66 15 96 05/25/24 03:12 83 17 96 05/25/24 03:00 67 17 95 05/25/24 02:51 75 17 96 05/25/24 02:30 70 15 96 05/25/24 02:12 74 15 97 05/25/24 02:03 85 17 97 05/25/24 01:54 62 18 96 05/25/24 01:21 65 17 96 05/25/24 01:12 73 18 95 05/25/24 01:09 94 H 16 96 05/25/24 00:51 81 16 96 05/25/24 00:48 86 15 96 05/25/24 00:30 78 15 95 05/25/24 00:24 83 18 95 05/25/24 00:15 36.9 C 05/25/24 00:12 76 18 96 05/24/24 23:51 87 21 98 05/24/24 23:42 80 16 97 05/24/24 23:24 87 21 96 05/24/24 23:18 69 16 96 05/24/24 23:09 70 19 96 05/24/24 22:42 82 17 98 05/24/24 22:30 75 17 96 05/24/24 22:15 74 16 96 05/24/24 22:00 195/88 H 05/24/24 22:00 195/88 H 05/24/24 22:00 107 H 21 95 05/24/24 21:54 79 22 96 05/24/24 21:50 Nasal Cannula 5 05/24/24 21:45 75 17 97 05/24/24 21:30 82 18 96 05/24/24 21:18 77 18 98 05/24/24 21:03 82 16 97 05/24/24 20:51 84 17 95 05/24/24 20:48 91 H 21 96 05/24/24 20:30 74 18 97 05/24/24 20:24 90 17 96 05/24/24 20:15 99 H 17 97 Critical Care Results & Data Vital Signs (Past 12 Hours) Vital Signs Temp Pulse Resp BP Pulse Ox O2 Del Method O2 Flow Rate 05/25/24 04:42 86 18 96 05/25/24 04:33 64 15 97 05/25/24 04:12 66 15 96 05/25/24 04:00 36.8 C 05/25/24 04:00 66 14 96 10/15/24 03:51 67 17 96 05/25/24 03:30 74 16 95 05/25/24 03:21 66 15 96 05/25/24 03:12 83 17 96 05/25/24 03:00 67 17 95 05/25/24 02:51 75 17 96 05/25/24 02:30 70 15 96 05/25/24 02:12 74 15 97 05/25/24 02:03 85 17 97 05/25/24 01:54 62 18 96 05/25/24 01:21 65 17 96 05/25/24 01:12 73 18 95 05/25/24 01:09 94 H 16 96 05/25/24 00:51 81 16 96 05/25/24 00:48 86 15 96 05/25/24 00:30 78 15 95 05/25/24 00:24 83 18 95 05/25/24 00:15 36.9 C 05/25/24 00:12 76 18 96 05/24/24 23:51 87 21 98 05/24/24 23:42 80 16 97 05/24/24 23:24 87 21 96 05/24/24 23:18 69 16 96 05/24/24 23:09 70 19 96 05/24/24 22:42 82 17 98 05/24/24 22:30 75 17 96 05/24/24 22:15 74 16 96 05/24/24 22:00 195/88 H 05/24/24 22:00 195/88 H 05/24/24 22:00 107 H 21 95 05/24/24 21:54 79 22 96 05/24/24 21:50 Nasal Cannula 5 05/24/24 21:45 75 17 97 05/24/24 21:30 82 18 96 05/24/24 21:18 77 18 98 05/24/24 21:03 82 16 97 05/24/24 20:51 84 17 95 05/24/24 20:48 91 H 21 96 05/24/24 20:30 74 18 97 05/24/24 20:24 90 17 96 05/24/24 20:15 99 H 17 97 Lab & Micro Results (Past 24 Hours) No Data to Display No Data to Display No Data to Display I & O Totals 24 Hours 05/24/24 05/25/24 05/26/24 06:59 06:59 06:59 Intake Total 1957.80 / 1957.80 7.7 / 7.7 Output Total 1645 / 1645 Balance 312.80 / 312.80 7.7 / 7.7 Cumulative 05/17/24 08:25 thru 05/25/24 08:02 Intake Total 1965.50 Output Total 1645 Balance 320.50 RT Ventilator Mngmt (Last Documented) Ventilator Ordered Settings Respiratory Rate 18 05/25/24 04:42 Ventilator - PT Measurements Respiratory Rate 18 Coding Level of Care Code 22097 SUB INP/OBS CARE 2/35MIN Diagnoses Hx-TIA (transient ischemic attack) Z86.73 HTN (hypertension) I10 Diabetes mellitus E11.9 COPD (chronic obstructive pulmonary disease) J44.9
[2024-05-25 10:27] VITALS: RESP 16; O2SAT 95
[2024-05-25] MEDS: TICAGRELOR 90 MG TAB PO SCH (11:22)
--- NOTE | 2024-05-25 11:27 | Surgery Progress Note ---
Date of Service May 25, 2024 Assessment & Plan (1) Internal carotid artery stent present: Plan: Pt doing well POD #1 after L TCAR. Discussed wtih Dr weldon, ok for d/c home. (2) Symptomatic stenosis of left carotid artery: Plan: see above Admission and Anticipated Discharge Date Admission Date: May 24, 2024 Subjective 73 yo m POD #1 after uncomplicated L TCAR, seen in f/u today. Pt denies any significant pain, states just feeling tired. Wants to go home. Denies any other new complaints. Taking PO well, ambulating. Review of Systems Review of Systems: All systems reviewed & are unremarkable except as noted in HPI & below Physical Exam Constitutional: WD/WN, vitals as above cooperative and comfortable; not in distress Neck: trachea midline L suprcalvicular incision C/D/I. + local ecchymosis and edema, minimal tenderness. Respiratory: normal respiratory effort, lungs clear to auscultation Auscultation: + diminished lung sounds Cardiovascular: Rate/Rhythm: regular rate and regular rhythm Vessels: posterior tibial pulses present, dorsalis pedis pulses present and radial pulses present; + abnormal peripheral pulses Extremities: normal capillary refill; no edema Gastrointestinal (Abdomen): Inspection/Auscultation: abdomen normal to inspection and normal bowel sounds Percussion/Palpation: abdomen soft; abdomen nontender Musculoskeletal: no cyanosis or clubbing, extremities motor strength 5/5 Skin: no rashes, warm and dry femoral vein puncture c/d/i Neurologic: moves all extremities and awake; no focal motor deficits and not confused Psychiatric: A+Ox3, euthymic affect Results & Data Vital Signs (Past 12 Hours) Vital Signs Temp Pulse Resp BP Pulse Ox O2 Del Method O2 Flow Rate 05/25/24 10:00 67 16 143/80 H Nasal Cannula 05/25/24 09:26 73 18 168/67 H 95 Nasal Cannula 1.5 05/25/24 08:55 66 05/25/24 08:52 148/72 H 05/25/24 08:46 159/68 H 05/25/24 08:32 Nasal Cannula 2 05/25/24 08:27 67 15 97 Nasal Cannula 2 05/25/24 08:12 71 20 96 Nasal Cannula 2 05/25/24 07:33 80 23 05/25/24 07:00 83 18 96 Nasal Cannula 05/25/24 04:42 86 18 96 05/25/24 04:33 64 15 97 05/25/24 04:12 66 15 96 05/25/24 04:00 36.8 C 05/25/24 04:00 66 14 96 05/25/24 03:51 67 17 96 05/25/24 03:30 74 16 95 05/25/24 03:21 66 15 96 05/25/24 03:12 83 17 96 05/25/24 03:00 67 17 95 05/25/24 02:51 75 17 96 05/25/24 02:30 70 15 96 05/25/24 02:12 74 15 97 05/25/24 02:03 85 17 97 05/25/24 01:54 62 18 96 05/25/24 01:21 65 17 96 05/25/24 01:12 73 18 95 05/25/24 01:09 94 H 16 96 05/25/24 00:51 81 16 96 05/25/24 00:48 86 15 96 05/25/24 00:30 78 15 95 05/25/24 00:24 83 18 95 05/25/24 00:15 36.9 C 05/25/24 00:12 76 18 96 05/24/24 23:51 87 21 98 05/24/24 23:42 80 16 97 05/24/24 23:24 87 21 96
--- NOTE | 2024-05-25 11:28 | Discharge Summary ---
Date of Service May 25, 2024 Admission HPI Per Admitting Provider Name: SANFORD LORD Patient Number: [id number] : 1950 Date of Service: 05/10/2024 Chief Complaint: _New patient consultation for carotid stenosis HPI: _Mr. Lord is an elderly male who presents to Dr. Miramontes's vascular surgery clinic today as a new patient in consultation for carotid stenosis. Patient states that he developed a breen area of vision in his left eye about 6 weeks ago. He states that it has abated back to almost normal at this point. He called his primary care physician who advised him to see his eye doctor, who then sent him to a retinal specialist. Both of them determined that he had a central retinal artery occlusion by eye exam. He was recommended to undergo a carotid ultrasound which demonstrated a severe stenosis of his left ICA. He is then sent for CTA by his primary care physician, and referred to Dr. Miramontes's office for evaluation. Patient denies any other symptoms of cerebrovascular insufficiency including facial droop, sudden onset confusion, unilateral headache, unilateral extremity weakness numbness or tingling, difficulty speaking or swallowing. He has no history of TIA or CVA in the past. He denies headache, fever, chest pain, shortness of breath, bone pain, nausea, vomiting, rest pain, claudication, nonhealing wounds or ulcers, other complaints. Review of systems: A total of 14 systems were reviewed and are negative aside fr om what is related in his HPI Imaging: Patient had a CTA performed at [facility] which demonstrates an ulcerative plaque of his proximal left ICA. An ultrasound performed also at [facility] indicates severe stenosis of his left ICA Current Home Meds: (Last Updated 05/10 15:25) acetaminophen-hydrocodone (acetaminophen-hydrocodone 325 mg-5 mg oral tablet) TAKE 1 TABLET BY MOUTH 2 times a day as needed amLODIPine (amLODIPine 10 mg oral tablet) TAKE 1 TABLET (10mg) BY MOUTH IN THE MORNING aspirin (aspirin 81 mg oral delayed release tablet) 81 mg PO Daily atorvastatin (atorvastatin 40 mg oral tablet) 40 mg PO Daily clopidogrel (Plavix 75 mg oral tablet) 75 mg PO Daily losartan (losartan 100 mg oral tablet) TAKE 1 TABLET (100mg) BY MOUTH IN THE MORNING nitroglycerin (nitroglycerin 0.4 mg sublingual tablet) 0.4 mg SL q5min PRN: as needed for chest pain Allergies and Sensitivities: NKA Past Medical History: Problems: Hypertension Carotid artery stenosis Coronary artery stenosis Surgical history: Positive for carpal tunnel surgery in the right, bilateral shoulder surgery, cataracts, cardiac catheterization without intervention Family history: Positive for hypertension and cancer social history: Patient is a current smoker, he smokes at least 1 pack daily for the past 60 years. He he occasionally consumes beer as a form of alcohol. He does not use illicit drugs. OBJECTIVE Vitals: Last Updated 05/10/24 14:27 Date Temp BP Location Pulse RR SpO2 Pain 05/10/24 144/58 Right Arm 05/10/24 128/60 Left Arm 79 93 Vital Signs are the last 3 documented. No Orthostatic Data Available No Height/Weight Data Available Physical Exam Constitutional: In general patient is a overweight but healthy-appearing well- nourished well-developed elderly male in no distress. Is alert and oriented with any focal deficits. His carotids do not demonstrate a bruit. His heart is regular without murmur, lungs are decreased with coarse sounds and occasional wheezing. Otherwise are clear. His abdomen is protuberant due to body habitus. Is soft and nontender with normoactive bowel sounds in all 4 quadrants. Brachial and radial pulses are +3. Femoral pulses are +3. Lower extremities a pulses are +2 in the left +1 in the right. He has brisk capillary refill and no sign of distal ischemia. There is no edema. 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 This also demonstrates an ulcerative plaque, which is likely the source of his central retinal artery occlusion and his eye symptoms. While his symptoms appear to have nearly resolved, he remains at increased risk of another cerebrovascular event. For this reason we recommend that he consider surgical intervention. The surgical options of carotid endarterectomy versus TCAR were discussed at length with the patient. Patient elects to proceed with TCAR. We will start him on Plavix, aspirin, and statin medications today. He is aware that he will require these medications for at least 1 year postoperatively. The risks of the surgery including but not limited to bleeding, infection, CVA, nerve damage, myocardial infarction, , were discussed at length with the patient by myself at Dr. Miramontes's request. The patient expresses understanding and agreement to proceed. This will occur in the next few weeks at the patient's convenience. We will have him undergo a echocardiogram preoperatively. Patient is advised to call any questions or concerns. He is agreeable with this plan. Thank you for letting us participate in the care of this patient. I have personally spent_45__ minutes performing kyzy-bj-rukq and lif-iwhh-bj-face activities on this date of service.Time does not include s eparately reported services. Activities Include: _x_ review of the medical record x__ obtaining a history _x_ physical exam/evaluation __ review labs _x_ review radiology reports x__ counseling/educating patient/family/caregiver __ discussion/referral to other healthcare professional _x_ documenting care in the medical record __ independent interpretation of results x__ communication of results to patient/family/caregiver x__ coordination of care Signature Line Electronic Signature on File CC: Jh Rico, [address] [facility] [id number] * Electronically Reviewed/Signed by: Prudence Arthur PA-C Author Signature Dt/Tm:05/10/2024 04:31 PM [facility] [place], [address] [place] [address] LM Result Type: HVI Outpt Note Date of Service: May 10, 2024 16:20 EDT Authorization Status: Final Author or Import Date: SAMMIE Arthur Lynn on May 10, 2024 16:31 EDT Verified By: SAMMIE Arthur Lynn on May 10, 2024 16:31 EDT Encounter info: [id number], [facility], Clinic, 05/10/2024 - 05/10/2024 Admission Exam Per Admitting Provider Constitutional: In general patient is a overweight but healthy-appearing well- nourished well-developed elderly male in no distress. Is alert and oriented with any focal deficits. His carotids do not demonstrate a bruit. His heart is regular without murmur, lungs are decreased with coarse sounds and occasional wheezing. Otherwise are clear. His abdomen is protuberant due to body habitus. Is soft and nontender with normoactive bowel sounds in all 4 quadrants. Brachial and radial pulses are +3. Femoral pulses are +3. Lower extremities a pulses are +2 in the left +1 in the right. He has brisk capillary refill and no sign of distal ischemia. There is no edema. Principal Diagnosis 1. s/p L TCAR 2. Symptomatic L ICA stenosis Discharge Exam Constitutional WD/WN, vitals as above cooperative and comfortable; not in distress Neck trachea midline Respiratory normal respiratory effort, lungs clear to auscultation Auscultation: + diminished lung sounds Cardiovascular Rate/Rhythm: regular rate and regular rhythm Vessels: posterior tibial pulses present, dorsalis pedis pulses present and radial pulses present; + abnormal peripheral pulses Extremities: normal capillary refill; no edema Gastrointestinal (Abdomen) Inspection/Auscultation: abdomen normal to inspection and normal bowel sounds Percussion/Palpation: abdomen soft; abdomen nontender Musculoskeletal no cyanosis or clubbing, extremities motor strength 5/5 Skin no rashes, warm and dry Neurologic moves all extremities and awake; no focal motor deficits and not confused Psychiatric A+Ox3, euthymic affect Discharge Data Allergies Allergy/AdvReac Type Severity Reaction Status Date / Time No Known Allergies Allergy Verified 05/24/24 06:35 Consultations 05/24/24 13:59 Consult Cook Manager Routine Procedures Performed Operation Date: 05/24/24 08:00 Actual Procedures p Left Transcarotid Artery Revascularization(Left) - Chencho Miramontes MD Ordered Studies 05/24/24 07:15 EV angio carotid cerv LT Routine US EV guide vascular access Routine Hospital Course (1) Internal carotid artery stent present: Pt doing well POD #1 after L TCAR. Discussed wtih silviano Rao for d/c home. (2) Symptomatic stenosis of left carotid artery: see above Total Time Total Time Spent Total Time Spent (In Minutes): 0 Discharge Plan Discharge Items Patient Disposition: Home - Self-Care Reason For Visit: Symptomatic Left Internal Carotid Artery Stenosis Discharge Diagnosis: 1. s/p L TCAR 2. Symptomatic L ICA stenosis Activity: Per Instructions section Non-emergency contact: Primary Care Provider and Surgeon Call non-emergency contact if: you have any medication questions, your symptoms worsen, your pain is not controlled, your pain is concerning for you, you have a fever, your wound has increased redness and your wound has increased drainage Follow-up/Referrals: Chencho Miramontes MD [Physician] - (Follow up with Dr Miramontes or Prudence Arthur PA-C in 2 weeks) Jh Rico DO [Primary Care Provider] - (Follow up with your PCP within 2 weeks.) Diet: Carb Consistent or DM2 and Heart Healthy Addtl Attending Provider Instructions: SPECIAL CARE INSTRUCTIONS: Diet: * You may return to previous diet. Medications: * Continue to take Aspirin, ticagrelor, and statin medications as directed. DO NOT STOP THESE MEDICATIONS WITHOUT SPEAKING TO DR MIRAMONTES'S OFFICE You may stop at Dr Miramontes's office on your way home today for a pharmacy coupon card to help with your ticagrelor cost. Incision Care: * You may shower, but do not rub incision. You may let the warm soapy water run over it. Be sure to dry the incision well after bathing. * Do not shave directly over the incision until it is healed. * DO NOT IMMERSE THE INCISION IN A TUB/POOL/etc. UNTIL HEALED. Restrictions: * Do not drive if you are still taking any narcotic pain medication. * Do not lift anything heavier than a gallon of milk for one week after going home. Possible Complications: * Numbness - It is normal to have some numbness around the incision. Numbness can extend beyond the incision to areas of the neck, ear and face. The numbness is due to bruising of nerves during the surgery and will gradually improve over a period of months. * Hoarseness/Difficulty Speaking and Swallowing - The bruising of nerves in the neck can also cause a hoarse voice, difficulty speaking or swallowing. This may improve over time, HOWEVER, if it continues for more than a few days please contact our office ([phone]). * Excessive Swelling - There will be some swelling immediately after surgery which usually resolves within one week. If you notice that the swelling is getting worse, notify your surgeon ([phone]). * Drainage/Bleeding - If there is any drainage or bleeding, it should be a very small amount (less than a teaspoon per day). If you have excessive bleeding or drainage from the incision, call your surgeon ([phone]) right away. ACTIVATION OF EMERGENCY MEDICAL SYSTEM: Call 911, immediately, if you experience any of the following: Warning Signs and Symptoms of Stroke: * Sudden numbness or weakness of the face, arm or leg, especially on one side of the body * Sudden confusion, trouble speaking or understanding * Sudden trouble seeing in one or both eyes * Sudden trouble walking, dizziness, loss of balance or coordination * Sudden severe headache with no cause Do not delay calling 911 if you experience any warning signs or symptoms of a stroke. Delay in seeking medical attention may affect what treatments can be given to you. Risk Factors for Stroke: You can reduce your chances of stroke by working with your medical provider to adopt a healthy lifestyle. Some specific ways to lower your chance of stroke are: * If you are a smoker, now is the time to stop smoking cigarettes * If you are diabetic, improve the control of your blood sugars * Avoid excessive amounts of alcohol * Control high blood pressure * Lose weight if you are overweight * Be sure to lead an active lifestyle * Eat a healthy diet low in salt, cholesterol and fat You should know about other risk factors for stroke that you are unable to control. These include: * Age 55 years or older * Male gender * Certain racial groups: , or / * Family History of Stroke, Mini stroke or Heart Attack * Sickle Cell Disease You will be receiving a call from the Vascular Surgery Nurse after you are discharged. FOLLOW UP VISIT: It is important for you to keep your follow up appointments with your medical provider. Keep any scheduled doctor appointments. Pending Studies at Discharge: No Stand-Alone Forms: My [facility], Smoking Cessation Medications and DC Order Prescriptions: New Brilinta 90 mg Tablet 90 mg PO BID Qty: 60 11RF Continued gabapentin 100 mg capsule 100 mg PO QAM tamsulosin 0.4 mg capsule 0.4 mg PO DAILY lidocaine 4 % cream 1 applic topical BID clindamycin HCl 300 mg capsule 300 mg PO TID glipizide 5 mg tablet extended release 24hr 5 mg PO DAILY hydrocodone-acetaminophen 5-325 mg Tablet 1 tab PO BID losartan 100 mg Tablet 100 mg PO QAM amlodipine 10 mg Tablet 10 mg PO QAM atorvastatin 40 mg tablet 40 mg aspirin tablet 81 mg PO 1XD Discontinued clopidogrel tablet 75 mg PO 1XD Discharge Orders: Discharge Order (Routine); Ordered 05/25/24 Ordered By: Prudence Arthur Admission Data Admit Date/Time: 05/24/24 07:49 Attending Provider: Chencho Miramontes Admit Provider: Chencho Miramontes Primary Care Provider: Jh Rico Other Providers: Soy Ariza; Evelio Garcia; Michele Ríos; Kris Chavez; Gurpreet Leone; Abdulkadir Naik; Denys Swartz; Lilian Nuñez; Maria Antonia Berg; Danny Low; Fredis Montenegro; Xena Kulkarni
[2024-05-25 11:45] VITALS: BP 156/72; PULSE 70
== END 2024-05-25 13:18 | disposition home or self-care (01) | DRG 35 ==
LOC: ASU 06:14 → 1E 07:49
PROC: EV.TCAR (2024-05-24 08:00)